=== PATIENT | female | born 1965 | race Caucasian/White ===

== ENCOUNTER 2024-12-13 12:31 | Day surgery (SDC) | payer OTHER ==
[2024-12-13] MEDS ORDERED: LIDOCAINE HCL 2% 100 MG/5 ML IJ ONE (12:32)
[2024-12-13] MEDS ORDERED: Xylocaine-Mpf 2% 5 Ml Vial ONE (14:54)
[2024-12-13] MEDS ORDERED: propofoL IV ONE (14:54)
--- NOTE | 2024-12-13 16:54 | XRAY ---
Indication: Left C2-C4 MBB. Intraoperative fluoroscopy provided for 30 seconds. 3 digital spot image submitted for interpretation demonstrates posterior needle tips projecting over expected left C2-C4 nerve roots. Correlate with intraoperative findings/report.
--- NOTE | 2024-12-14 09:54 | XRAY ---
30 seconds of fluoroscopy was used in surgery for a left C2-C4 MBB.
== END 2024-12-13 15:24 | disposition home or self-care (01) ==
LOC: SDC-PAIN 12:31
PROVIDERS: ATTEND Psychiatry & Neurology Pain Medicine
DX: M47.812 Spondylosis without myelopathy or radiculopathy, cervical region (principal)